=== PATIENT | female | born 1950 | race Caucasian/White ===

== ENCOUNTER 2021-09-10 13:38 | Inpatient (IN) | payer MEDICARE ==
[~2021-09-10] VITALS: Ht 157.5 cm; Wt 49.7 kg
[~2021-09-10 13:38] MED LIST: WOMEN MULTIVITAMIN
[2021-09-10 15:17] LABS: Albumin, Blood 3.3 g/dL (3.4-5.0); Albumin/Globulin Ratio 1.1 (0.8-1.8); Bilirubin, Total 0.5 mg/dL (0.1-1.0); Bun/Creatinine Ratio 12.3 (12.0-20.0); Calcium, Blood 8.9 mg/dL (8.5-10.1); Creatinine, Blood 1.14 mg/dL (0.40-1.00); Globulin, Blood 2.9 g/dL (2.2-4.0); Potassium, Blood 3.8 mmol/L (3.5-5.5); Total Protein, Blood 6.2 g/dL (6.4-8.2)
[2021-09-10 15:33] LABS: BASOPHILS ABSOLUTE AUTO 0.08 K/mm3 (0.00-0.23); BASOPHILS PERCENT AUTO 2 % (0-2); EOSINOPHILS PERCENT AUTO 4 % (0-6); Hematocrit 37.7 % (33.0-51.0); Hemoglobin 12.6 g/dL (11.5-16.0); Mean Corpuscular HGB 28.8 pg (26.0-34.0); Mean Corpuscular HGB Conc 33.4 g/dL (31.5-36.5); Mean Corpuscular Volume 86 fL (80-100); Platelet Count 173 K/mm3 (150-400); RDW Coefficient Variation 13.1 % (11.7-14.2); RDW Standard Deviation 41.1 fL (35.1-46.3); Red Blood Cell Count 4.38 M/mm3 (3.80-5.20); White Blood Cell Count 5.23 K/mm3 (4.00-11.30)
[2021-09-10 15:42] LABS: IMMATURE GRAN ABSOLUTE AUTO 0.09 K/mm3 (0.00-0.10); IMMATURE GRAN PERCENT AUTO 2 % (0-1); LYMPHOCYTES ABSOLUTE AUTO 1.72 K/mm3 (0.84-5.20); LYMPHOCYTES PERCENT AUTO 33 % (21-46); MONOCYTES ABSOLUTE AUTO 0.46 K/mm3 (0.16-1.47); MONOCYTES PERCENT AUTO 9 % (4-13); Mean Platelet Volume 13.7 fL (9.1-12.4); NEUTROPHILS ABSOLUTE AUTO 2.68 K/mm3 (1.96-9.15); NEUTROPHILS PERCENT AUTO 51 % (41-73)
[2021-09-10 15:55] LABS: BASOPHILS PERCENT MAN 0 % (0-2); EOSINOPHILS ABSOLUTE MAN 0.31 K/mm3 (0.00-0.68); EOSINOPHILS PERCENT MAN 6 % (0-6); LYMPHOCYTES ABSOLUTE MAN 1.56 K/mm3 (0.84-5.20); LYMPHOCYTES PERCENT MAN 30 % (21-46); MONOCYTES ABSOLUTE MAN 0.41 K/mm3 (0.16-1.47); MONOCYTES PERCENT MAN 8 % (4-13); NEUTROPHILS ABSOLUTE MAN 2.92 K/mm3 (1.96-9.15); SEG NEUTROPHILS PERCENT MAN 56 % (41-73); TOTAL CELLS COUNTED 100
[2021-09-10 18:25] LABS: Very Low Density Lipoprot Chol 28 mg/dL (6-32)
[2021-09-10 18:28] LABS: CHOL/HDL RATIO 4.2; Cholesterol 205 mg/dL (50-200); HDL Cholesterol 49 mg/dL (>39); LDL/HDL RATIO 2.6; Low Density Lipoprotein Chol 128 mg/dL (0-110); Triglycerides 140 mg/dL (30-160)
[2021-09-10 18:29] LABS: Anti-Xa UFH, PHA Monitoring <0.10 IU/mL; International Normalized Ratio 1.09; Prothrombin Time Results 11.4 Sec (9.7-11.5)
--- NOTE | 2021-09-10 18:34 | NUR ---
Telephone report received from MIRIAM Haynes. Anticipate pt arrival to PCU 6 shortly.
--- NOTE | 2021-09-10 21:29 | NUR ---
Assumed care 1900 Pt was admitted right at change of shift. During shift change pt began to have trouble breathing, RT called to do STAT breathing tx and pt was placed on 3L of oxygen to sustain >90%. Wheezing and restricted sounding lungs. MD notified and assessed pt at bedside. One time dose of lasix given. Heparin gtt stated per orders. RT administered 2 breathing tx and pt is now resting comfortable in bed, still on 3L nasal canula. RR has come down, still in the low 20s. VSS. Wheezing improved, can hear crackles in lower lobes.
--- NOTE | 2021-09-10 21:49 | NUR ---
Critical result of troponin 171, this is down from 173 previously.
--- NOTE | 2021-09-11 00:17 | NUR ---
Cardiac consult called to after hours heart center. Gerry in the heart center took the consult and said Dr. Root will be on tomorrow and will round on patient.
[2021-09-11 02:23] LABS: BASOPHILS ABSOLUTE AUTO 0.07 K/mm3 (0.00-0.23); BASOPHILS PERCENT AUTO 1 % (0-2); EOSINOPHILS ABSOLUTE AUTO 0.06 K/mm3 (0.00-0.68); EOSINOPHILS PERCENT AUTO 1 % (0-6); Hematocrit 37.2 % (33.0-51.0); IMMATURE GRAN ABSOLUTE AUTO 0.01 K/mm3 (0.00-0.10); IMMATURE GRAN PERCENT AUTO 0 % (0-1); LYMPHOCYTES ABSOLUTE AUTO 1.37 K/mm3 (0.84-5.20); LYMPHOCYTES PERCENT AUTO 21 % (21-46); MONOCYTES ABSOLUTE AUTO 0.54 K/mm3 (0.16-1.47); MONOCYTES PERCENT AUTO 8 % (4-13); Mean Corpuscular HGB 29.1 pg (26.0-34.0); Mean Corpuscular HGB Conc 32.3 g/dL (31.5-36.5); Mean Corpuscular Volume 90 fL (80-100); Mean Platelet Volume 13.3 fL (9.1-12.4); NEUTROPHILS ABSOLUTE AUTO 4.41 K/mm3 (1.96-9.15); NEUTROPHILS PERCENT AUTO 68 % (41-73); Platelet Count 167 K/mm3 (150-400); RDW Coefficient Variation 13.3 % (11.7-14.2); Red Blood Cell Count 4.13 M/mm3 (3.80-5.20); White Blood Cell Count 6.46 K/mm3 (4.00-11.30)
[2021-09-11 02:38] LABS: Bun/Creatinine Ratio 13.4 (12.0-20.0); Calcium, Blood 8.7 mg/dL (8.5-10.1); Creatinine, Blood 1.42 mg/dL (0.40-1.00); Potassium, Blood 4.1 mmol/L (3.5-5.5)
--- NOTE | 2021-09-11 03:55 | NUR ---
Director Of Oncology Note: Pt is A&O, pleasant with cares. VSS on 1-3L overnight, titrated pt down to 1L. No chest pain overnight. Up to BSC with supervision to manage lines. At the start of shift pt was very SOB, wheezy and anxious w/ RR 25-30. RT administered 2 breathing treatments and one dose of lasix was given. Lung sounds improved, but crackles are still present. Heparin gtt running per orders. Cardiac consult was called in and inside solar sales consultant will round in AM. Tele: SR/ST 80-110s, tachy with respiratory episode earlier in night, mainly was in 80s after that. Pt has been NPO since midnight.
--- NOTE | 2021-09-11 06:57 | NUR ---
Pt titrated up to 3L to sustain >92%.
--- NOTE | 2021-09-11 18:08 | NUR ---
SHIFT SUMMARY: PT. OS A&OX4, IND W/ MOBILITY, ON A CARDIAC DIET, AND HAS NOT HAD ANY C/O ANGINA OR DYSPNEA. SHE IS ON 2 L NC, BUT DOES NOT USE 02 WHEN AT HOME. WE TRIED TO WEAN PT. OFF OF 02 AND HER SATS DROPPED INTO THE 80'S. PT HAD ANGIO THIS MORNING AND CAME BACK W/ A RIGHT RADIAL ACCESS W/ TR BAND ON SITE. PT. HAS SOME BRUISING, BUT IT IS NON-TENDER AND SOFT. PT. WAS INFORMED OF THE PLAN TO BE TX'D BY PASSENGER SERVICE SUPERVISOR FOR CABG, BUT DECLINED TX AT THIS TIME. HEPARIN WAS RESTARTED PER PHARMACY DOSING. WILL FOLLOW UP W/ HER IN THE MORNING, AND DETERMINE IF SHE IS RELEASED TO GO HOME. PT. HAS BEEN SB-SR TODAY. VERY PLEASENT AND COOPERATIVE
--- NOTE | 2021-09-12 06:12 | NUR ---
NO ACUTE EVENTS OVERNIGHT. NO EPISODES OF CHEST PAIN OR SHORTNESS OF BREATH AT REST. PT REPORTED MINIMAL SHORTNESS OF BREATH WHEN GETTING UP TO THE BEDSIDE COMMODE. RIGHT RADIAL PUNCTURE SITE IS WITHIN NORMAL LIMITS, WITH PALPABLE PULSE AND FULL SENSATION. EDUCATION PROVIDED REGARDING LIMB RESTRICTION POST CATHETERIZATION.
[2021-09-12 07:31] LABS: Hemoglobin 12.5 g/dL (11.5-16.0)
[2021-09-12 07:55] LABS: Platelet Count 152 K/mm3 (150-400)
[2021-09-12] MEDS ORDERED: ALBU2.5V5 INH (13:44)
[2021-09-12] MEDS ORDERED: Aspir 8181 MG PO (13:46)
[2021-09-12] MEDS ORDERED: ATOR80 PO (13:47)
[2021-09-12] MEDS ORDERED: METO25ER PO (13:49)
[2021-09-12] MEDS ORDERED: Nicoderm Cq1 EAC1 TOP (13:49)
--- NOTE | 2021-09-12 15:07 | NUR ---
DISCHARGE UPDATE PT LEFT UNIT AT 1435 VIA WHEELCHAIR. PT ON RA DURING DISCHARGE. PT BELONGINGS IN BAG AND WITH PT DURING DISCHARGE. DISCHARGE PACKET GONE OVER WITH PT AT 1417. DISCHARGE PACKET, ALONG WITH IMAGING DISC, IN PT BAG AND WITH PT DURING DISCHARGE.
== END 2021-09-12 14:35 | disposition home or self-care (01) | DRG 281 ==
LOC: ER 13:38 → EDBEDREQ 18:10 → PCU 18:29 → MEDS 18:29 → PCU 18:52
PROVIDERS: Emergency Medicine; ADMIT Family Medicine
PROC: 4A023N7 Measurement of Cardiac Sampling and Pressure, Left Heart, Percutaneous Approach (ICD-10-PCS; principal; 2021-09-11)
PROC: B2111ZZ Fluoroscopy of Multiple Coronary Arteries using Low Osmolar Contrast (ICD-10-PCS; 2021-09-11)
DX: I21.4 Non-ST elevation (NSTEMI) myocardial infarction (principal); N17.9 Acute kidney failure, unspecified; I50.20 Unspecified systolic (congestive) heart failure; I11.0 Hypertensive heart disease with heart failure; F17.210 Nicotine dependence, cigarettes, uncomplicated; Z88.0 Allergy status to penicillin; Z88.5 Allergy status to narcotic agent; Z71.6 Tobacco abuse counseling; Z90.49 Acquired absence of other specified parts of digestive tract; Z90.710 Acquired absence of both cervix and uterus
CPT/HCPCS: 36415; 71045; 76937; 80048; 80053; 80061; 83036; 83880; 84145; 84443; 84484; 85014; 85018; 85025; 85049; 85379; 85520; 85610; 93005; 93010; 93306; 93458; 94640; 94644; 94664; 94760; 98960; 99152; 99153; 99285-25; 99406; A9270; C1769; C1887; C1894; J1644; J1940; J2250; J2405; J3010; J7030; Q9967

== ENCOUNTER → 2023-06-21 | Outpatient (CLI) | payer MEDICARE, OTHER ==
[~2023-06-21] MED LIST changes: +ALBU2.5V5 INH; +AMLO10 PO; +ATOR80 PO; +Acerola C500 MG PO; +Amiodarone HCl200 MG PO; +Aspir 8181 MG PO; +BUPR150ER PO; +CEFD300 PO; +CLOP75 PO; +DOCU100 PO; +FERSU300 PO; +GABA100 PO; +METHYLDOPA PO; +METO25 PO; +MIRALAX17 GM PO; +Nicoderm Cq1 EAC1 TOP; +PANT40 PO; +VISBIOME 112.51 EACH PO
[2023-06-21 14:39] LABS: Creatinine, Urine Random 49.6 mg/dL (27.00-270.00); Protein/Creat Ratio, Ur Random 0.3
== END ==
LOC: LAB SHORT 11:00 → LAB 11:00 → LAB FUT 06-17 10:30
PROVIDERS: Internal Medicine Nephrology
DX: I12.9 Hypertensive chronic kidney disease with stage 1 through stage 4 chronic kidney disease, or unspecified chronic kidney disease (principal); N18.32 Chronic kidney disease, stage 3b
CPT/HCPCS: 82570; 84156

== ENCOUNTER → 2024-02-17 | Outpatient (CLI) | payer MEDICARE, OTHER ==
[2024-02-17 20:14] LABS: Creatinine, Urine Random 85.6 mg/dL (27.00-270.00); Protein, Urine Random 23.5 mg/dL (0.0-11.9); Protein/Creat Ratio, Ur Random 0.3
== END ==
LOC: LAB 19:03 → LAB SHORT 19:03
PROVIDERS: Internal Medicine Nephrology
DX: I12.9 Hypertensive chronic kidney disease with stage 1 through stage 4 chronic kidney disease, or unspecified chronic kidney disease (principal); N18.4 Chronic kidney disease, stage 4 (severe)
CPT/HCPCS: 82570; 84156

== ENCOUNTER → 2024-11-27 | Outpatient (CLI) | payer MEDICARE, OTHER ==
[2024-11-27 19:19] LABS: CHOL/HDL RATIO 2.0; Cholesterol 131 mg/dL (50-200); HDL Cholesterol 64 mg/dL (>39); LDL/HDL RATIO 0.8; Low Density Lipoprotein Chol 51 mg/dL (0-110); Thyroid Stimulating Hormone 0.267 uIU/mL (0.360-4.800); Triglycerides 78 mg/dL (30-160); Very Low Density Lipoprot Chol 15 mg/dL (6-32)
== END ==
LOC: LAB 10:40 → LAB SHORT 10:40
PROVIDERS: Family Medicine
DX: E03.9 Hypothyroidism, unspecified (principal); E78.2 Mixed hyperlipidemia
CPT/HCPCS: 80061; 84443

== ENCOUNTER → 2025-01-11 | Outpatient (CLI) | payer MEDICARE, OTHER ==
[2025-01-11 15:27] LABS: Thyroid Stimulating Hormone 1.26 uIU/mL (0.360-4.800)
== END ==
LOC: LAB SHORT 12:45 → LAB 12:45
PROVIDERS: Family Medicine
DX: E03.9 Hypothyroidism, unspecified (principal)
CPT/HCPCS: 84439; 84443